=== PATIENT | female | born 1945 | race Caucasian/White ===

== ENCOUNTER 2017-09-05 09:05 | Emergency (ER) | payer OTHER ==
[2017-09-05 09:23] VITALS: BP 156/78
--- NOTE | 2017-09-05 10:01 | UC ---
Hand/Wrist HPI - HPI Summary HPI Summary: Pt presents with left wrist pain for 1 week. She tells me that her pain started spontaneously about 1 week ago on the ulnar aspect of her left wrist. Has not been taking anything for pain. Denies numbness, tingling, or injury. - History Of Current Complaint Chief Complaint: UCUpperExtremity Stated Complaint: WRIST AND HAND INJURY Time Seen by Provider: 09/05/17 10:01 Hx Obtained From: Patient Onset/Duration: Gradual Onset Severity Initially: Moderate Severity Currently: Moderate Pain Intensity: 7 Pain Scale Used: 0-10 Numeric Aggravating Factor(s): Movement, Lifting Alleviating Factor(s): Rest - Allergies/Home Medications Allergies/Adverse Reactions: Allergies Allergy/AdvReac Type Severity Reaction Status Date / Time codeine Allergy stomach Verified 09/05/17 09:16 upset meperidine [From Demerol] Allergy Rash Verified 09/05/17 09:39 Home Medications: Home Medications Albuterol HFA INHALER* [Ventolin HFA Inhaler*] 1 puff .ROUTE Q4HR 09/05/17 [ History Confirmed 09/05/17] Aspirin 81 mg CHEW TAB* 81 mg PO DAILY 09/05/17 [History Confirmed 09/05/17] Levothyroxine TAB* [Synthroid TAB*] 50 mcg PO DAILY 09/05/17 [History Confirmed 09/05/17] Lisinopril TAB* [Prinivil TAB 10 MG*] 20 mg PO DAILY 09/05/17 [History Confirmed 09/05/17] Pantoprazole TAB (NF) [Protonix TAB (NF)] 40 mg PO DAILY 09/05/17 [History Confirmed 09/05/17] Simvastatin [Zocor] 40 mg PO DAILY 09/05/17 [History Confirmed 09/05/17] Symbicort 160/4.5 (NF) 2 inh DAILY 09/05/17 [History Confirmed 09/05/17] metFORMIN* [Glucophage 500 MG TAB *] 500 mg PO BID 09/05/17 [History Confirmed 09/05/17] PMH/Surg Hx/FS Hx/Imm Hx Endocrine History: Diabetes, Hypothyroidism, Dyslipidemia Cardiovascular History: Hypertension Respiratory History: COPD GI/ History: Gastroesophageal Reflux - Surgical History Surgical History: Yes Surgery Procedure, Year, and Place: stomach removed - Family History Known Family History: Positive: Respiratory Disease - Social History Occupation: Retired Lives: With Family Alcohol Use: None Substance Use Type: None Smoking Status (MU): Heavy Every Day Tobacco Smoker Type: Cigarettes Review of Systems Constitutional: Negative Skin: Negative Respiratory: Negative Cardiovascular: Negative Neurovascular: Negative Musculoskeletal: Decreased ROM - Left wrist, Other: - Pain left wrist Neurological: Negative Psychological: Negative All Other Systems Reviewed And Are Negative: Yes Physical Exam - Summary Physical Exam Summary: GENERAL: NAD. WDWN. No pain distress. SKIN: No rashes, sores, ulcers, masses, lesions. NECK: Supple. Nontender. No lymphadenopathy. CHEST: CTAB. No r/r/w. No accessory muscle use. Breathing comfortably and in no distress. CV: RRR. Without m/r/g. Pulses intact radial and ulnar. MSK: TTP left ulnar styloid. 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 FROM, but pain with radial and ulnar deviation. No edema or obvious bony deformities. No snuffbox tenderness. No ecchymosis or erythema. NEURO: Alert. Sensations intact hand and all fingers. PSYCH: Age appropriate behavior. Triage Information Reviewed: Yes Vital Signs: Initial Vital Signs Temp 97.7 F 09/05/17 09:19 Pulse 89 09/05/17 09:19 Resp 18 09/05/17 09:19 BP 156/78 09/05/17 09:19 Pulse Ox 100 09/05/17 09:19 Hand/Wrist Course/Dx - Course Course Of Treatment: XR: IMPRESSION: Given pattern of soft tissue swelling correlate for potential extensor carpi ulnaris tendon pathology. Suspect muscle strain - cock up splint, tylenol, and RICE therapy. F/u with ortho if needed. - Differential Dx/Diagnosis Provider Diagnoses: Left wrist pain Discharge - Sign-Out/Discharge Documenting (check all that apply): Discharge - Discharge Plan Condition: Stable Disposition: HOME Patient Education Materials: Arthralgia (ED) Referrals: Amaya Wood NP [Primary Care Provider] - Paula Vergara MD [Medical Doctor] - If Needed Additional Instructions: If you develop a fever, shortness of breath, chest pain, new or worsening symptoms - please call your PCP or go to the ED. Your blood pressure was high at todays visit. Please see your primary provider within 4 weeks for recheck and re-evaluation. 1) Rest, Ice, and elevate your wrist as much as possible. 2) Wear the wrist splint for added comfort and support 3) If your symptoms persist, please call Orthopedics at the number below to schedule a follow up appointment. - Billing Disposition and Condition Condition: STABLE Disposition: HOME
--- NOTE | 2017-09-05 10:31 | RAD ---
INDICATION: Distal ulnar wrist pain for one week without known injury. COMPARISON: No relevant prior exams available on the [facility] PACS for comparison. TECHNIQUE: AP, lateral, and oblique views LEFT wrist. REPORT: Mild ulnar plus variance. Negative for fracture, stigmata of avascular necrosis, or articular malalignment. Mild joint space narrowing at the scaphoid trapezium articulation. Mild longitudinally oriented soft tissue swelling at the ulnar aspect of the wrist. IMPRESSION: Given pattern of soft tissue swelling correlate for potential extensor carpi ulnaris tendon pathology.
== END 2017-09-05 10:43 | disposition home or self-care (01) ==
LOC: UCEAST 09:05
DX: M25.532 Pain in left wrist (principal); E11.9 Type 2 diabetes mellitus without complications; Z79.84 Long term (current) use of oral hypoglycemic drugs; E03.9 Hypothyroidism, unspecified; E78.5 Hyperlipidemia, unspecified; J44.9 Chronic obstructive pulmonary disease, unspecified; K21.9 Gastro-esophageal reflux disease without esophagitis; Z88.5 Allergy status to narcotic agent; F17.210 Nicotine dependence, cigarettes, uncomplicated
CPT/HCPCS: 99202; G0463